=== PATIENT | male | born 1950 | race Asian ===

== ENCOUNTER 2023-03-25 12:17 | Emergency (ER) | payer OTHER ==
[~2023-03-25] VITALS: Ht 167.6 cm; Wt 63.6 kg
[2023-03-25] MEDS ORDERED: METF-1211 PO (12:23)
[2023-03-25 12:25] VITALS: BP 157/88; PULSE 76; RESP 16; TEMP 98.3
[2023-03-25] MEDS ORDERED: METF-81 PO (12:26)
[2023-03-25] MEDS ORDERED: SIMV-261 PO (12:26)
[2023-03-25] MEDS ORDERED: ATEN-73 PO (12:26)
[2023-03-25] MEDS ORDERED: AMLO10TA55 PO (12:26)
[2023-03-25] MEDS ORDERED: PERTUSS(ACELL),DIPH,TET VAC/PF 0.5 ML SYRINGE IM. ONE (13:45)
[2023-03-25] MEDS ORDERED: CEPH-558 PO (14:05)
== END 2023-03-25 14:18 | disposition home or self-care (01) ==
LOC: EMS 12:22
DX: S61.212A Laceration without foreign body of right middle finger without damage to nail, initial encounter (principal); E11.9 Type 2 diabetes mellitus without complications; W45.8XXA Other foreign body or object entering through skin, initial encounter; Y93.89 Activity, other specified; Y92.89 Other specified places as the place of occurrence of the external cause; Y99.8 Other external cause status
CPT/HCPCS: 82962; 90471; 90715; 99283

== ENCOUNTER 2023-03-27 09:27 | Emergency (ER) | payer OTHER ==
[~2023-03-27] VITALS: Ht 167.6 cm; Wt 63.6 kg
[~2023-03-27 09:27] MED LIST: AMLO10TA55 PO; ATEN-73 PO; CEPH-558 PO; METF-81 PO; SIMV-261 PO
[2023-03-27 09:33] VITALS: TEMP 98.3
[2023-03-27 09:51] VITALS: BP 142/76; PULSE 78; RESP 16
== END 2023-03-27 10:30 | disposition home or self-care (01) ==
LOC: EMS 09:37
DX: S61.212D Laceration without foreign body of right middle finger without damage to nail, subsequent encounter (principal); E11.9 Type 2 diabetes mellitus without complications; I10 Essential (primary) hypertension
CPT/HCPCS: 99281; Z7502